=== PATIENT | male | born 1945 | race Caucasian/White ===

== ENCOUNTER → 2018-10-11 16:45 | Outpatient (CLI) | payer MEDICARE, SELFPAY ==
[2018-10-11 16:57] LABS: Microscopic, Urine URINE MICROSCOPIC (MICROSCOPIC)
[2018-10-11 17:37] LABS: Appearance,Urine CLEAR (Clear); Bilirubin,Urine Negative (Negative); Blood, Urine Negative (Negative); Color,Urine YELLOW (Yellow); Glucose,Urine (UA) Negative (Negative); Ketones,Urine Negative (Negative); Leukocyte Esterase,Urine TRACE (Negative); Nitrate,Urine Negative (Negative); Protein,Urine Negative (Negative); Urobilinogen,Urine 0.2 EU/dl (0.2)
[2018-10-11 17:48] LABS: Bacteria,Urine Trace /lpf; Squamous Epithelial Cell,Urine Occasional #/hpf (0-5)
== END ==
PROVIDERS: Visit Provider Family Medicine
DX: N39.0 Urinary tract infection, site not specified (principal)
CPT/HCPCS: 81001